=== PATIENT | male | born 1950 | race Caucasian/White ===

== ENCOUNTER 2017-05-14 10:17 | Day surgery (SDC) | payer MEDICARE, OTHER ==
[~2017-05-14 10:17] MED LIST: ACETAMINOPHEN 1,000 MG/100 ML BTL IV ONE; CLINDAMYCIN 600MG/50ML PREMIX 600 MG/50 ML BAG IVPB ONE; FAMOTIDINE 20MG TABLET PO ONE; MECLIZINE 25 MG TABLET PO ONE; METOCLOPRAMIDE 10 MG TABLET PO ONE
[2017-05-14 10:29] LABS: BASO % 0.4 % (0-6); EOS % 3.3 % (0-6); GRAN % 68.6 % (47-80); HEMATOCRIT 38.7 % (42.0-52.0); HEMOGLOBIN 11.9 gm/dl (14.0-18.0); LYMPH % 17.8 % (16-45); MEAN CELL VOLUME 81.5 fl (81-97); MEAN CORPUSCULAR HGB CONC 30.7 g/dl (32-36); MEAN PLATELET VOLUME 10.5 fl (7.4-10.4); MONO % 9.9 % (0-9); PLATELET COUNT 260 K/uL (130-400); RED BLOOD COUNT 4.75 M/uL (4.40-5.70); RED CELL DISTRIBUTION WIDTH 16.3 % (11.5-14.5); WHITE BLOOD COUNT W/O DIFF 7.7 K/uL (4.2-12.2)
[2017-05-14 10:45] LABS: ANION GAP 9.9 (7-16); BLOOD UREA NITROGEN 19 mg/dL (9-20); CARBON DIOXIDE 28.1 mmol/L (22-30); CREATININE 0.9 mg/dL (0.66-1.25); EST GLOMERULAR FILTRATION RATE > 60 ml/min; GLUCOSE,RANDOM 103 mg/dL (70-110)
[2017-05-14] MEDS ORDERED: PHENYLEPHRINE HCL 10 MG/ML VIAL IVP ONE (14:00)
[2017-05-14] MEDS ORDERED: SEVOFLURANE 250 ML INH ONE (14:00)
[2017-05-14] MEDS ORDERED: HYDROMORPHONE HCL 2 MG/ML VIAL IV ONE (14:00)
[2017-05-14] MEDS ORDERED: EPHEDRINE SULFATE 50 MG/ML ML IV ONE (14:00)
[2017-05-14] MEDS ORDERED: LIDOCAINE 2% MDV (20MG/ML) 20ML VIAL IV ONE (14:00)
[2017-05-14] MEDS ORDERED: BUPIVACAINE 0.25% W/EPI MPF 30ML VIAL IVP ONE (14:00)
[2017-05-14] MEDS ORDERED: KETOROLAC 30 MG/ML VIAL IVP ONE (14:00)
[2017-05-14] MEDS ORDERED: PROPOFOL 10 MG/ML VIAL IV ONE (14:00)
--- NOTE | 2017-05-16 14:38 | Operative Note ---
DATE OF SURGERY: 05/14/2017 Surgeon: Dwain Vaughn DO PREOPERATIVE DIAGNOSIS: Reducible right inguinal hernia. POSTOPERATIVE DIAGNOSIS: Reducible right inguinal hernia. OPERATION: Open right inguinal herniorrhaphy with mesh. Indication: The patient is a 58-year-old male who presented with pain and bulging in his right inguinal region. On exam, he had a reducible hernia noted. We did discuss repair; risks, benefits, and alternatives. Risks include bleeding, infection, acute or chronic pain, recurrence. He understood this fully. Thereafter, consent signed, questions answered. PROCEDURE: The patient was taken to the operating room and placed in a supine position. General anesthesia was administered per the department of anesthesia. The patient's right inguinal region was shaved of hair and prepped and draped in the usual fashion. At this time, an adequate timeout was performed. He had received preoperatively 2 g of Ancef. At this time, the oblique region was anesthetized with a total of 5 mL of 0.25% Sensorcaine with epinephrine. A 3.5 cm oblique incision was made. This was carried down through copious amounts of subcutaneous tissue to the aponeurosis of the external oblique. This was cleaned off. A paradise was made with the scalpel blade and enlarged through the superficial inguinal ring with Metzenbaum scissors. Care was taken not to injure the underlying ilioinguinal nerve or spermatic cord. At this time, superior and inferior flaps were developed and a Shari was placed on the spermatic cord. This was dissected free from the underlying transversalis fascia and retracted laterally with a Temple drain. The floor was inspected and noted to be free of any direct herniation. The cremasteric fibers were taken down. There was a fat-containing indirect hernia sac where high ligation was done. The patient had a very dilated deep inguinal ring. Therefore, an extra large plug was placed and sutured in with 2-0 Vicryl. At this time, a right-sided Prograf mesh was obtained. This was placed in the floor of the inguinal canal with excellent overlap of the pubic tubercle. Stitches went to the level of the pubic tubercle, second portion of the inguinal ligament, and the internal oblique aponeurosis. The mesh was pre-notched to accompany the spermatic cord. After this was done, the aponeurosis was closed over the cord with 2-0 Vicryl, Jeny layer was closed with 3-0 Vicryl, and skin was closed with 4-0 Vicryl in a running subcuticular fashion. Steri-Strips were applied. He was taken to the recovery room in satisfactory condition. FINDINGS AT THE TIME OF SURGERY: Right inguinal hernia, indirect. CC: Dr. Judi ANTONY
== END 2017-05-14 16:00 | disposition home or self-care (01) ==
LOC: SUR 10:17
PROVIDERS: ATTEND Surgery
DX: K40.90 Unilateral inguinal hernia, without obstruction or gangrene, not specified as recurrent (principal); D17.6 Benign lipomatous neoplasm of spermatic cord; E03.9 Hypothyroidism, unspecified; E78.00 Pure hypercholesterolemia, unspecified; I10 Essential (primary) hypertension
CPT/HCPCS: 49505; 00830; 85025; 80048; 88304; J1885; J1170; J2370

== ENCOUNTER 2017-10-21 09:37 | Emergency (ER) | payer MEDICARE ==
[2017-10-21] MEDS ORDERED: HYOSCYAMINE SULFATE ODT 0.125 MG TAB.SUBL SL ONE (09:53)
--- NOTE | 2017-10-21 09:57 | Emergency Department Record ---
History of Present Illness - General Chief complaint: Nausea, Vomiting, Diarrhea Stated complaint: DIARRHEA X 3 DAYS Time Seen by Provider: 10/21/17 09:52 Source: Patient Mode of Arrival: Ambulatory Limitations: No limitations - History of Present Illness Initial comments: 67 yo male presents to ED for evaluation of loose stools x 3 days. Patient reports undergoing back surgery with Dr. Nieto 10 days ago, has been constipated and taking colace but over the last 3 days has been unable to keep hydrated due to many loose, watery stools. Patient denies fevers, chill, or abdominal pain symptoms, but did report receiving Vancomycin x 2 days following his operation. Patient denies vomiting or urinary symptoms as well, and denies any recent ill contacts. MD complaint: Diarrhea Onset/Timin -: Days(s) Description of Vomiting: Watery Associated Abdominal Pain: No Severity: Moderate Severity scale (1-10): 2 Quality: Aching Consistency: Constant Improves with: None Worsens with: None Context: Recent surgery/procedure Associated Symptoms: Denies other symptoms - Related Data Previous Rx's Medication Instructions Recorded Hyoscyamine Sulfate [Levsin-Sl] 0.25 mg SL Q8H PRN #20 tab.subl 10/21/17 Metoprolol Tartrate 50 mg PO DAILY #15 tablet 10/21/17 Venlafaxine HCl [Effexor Xr] 75 mg PO DAILY #15 cap.er 10/21/17 Allergies Allergy/AdvReac Type Severity Reaction Status Date / Time cephalexin monohydrate Allergy Mild RASH Verified 08/23/16 13:57 [From Keflex] Penicillins Allergy Mild RASH Verified 08/23/16 13:57 tetracycline Allergy Mild RASH Verified 08/23/16 13:57 morphine Allergy NAUSEA AND Verified 10/21/17 09:49 VOMITING codeine AdvReac Mild NAUSEA AND Verified 08/23/16 13:56 VOMITING Travel Screening - Travel/Exposure Within Last 30 Days Have you traveled within the last 30 days?: No - Travel/Exposure Within Last Year Have you traveled outside the [place] in the last year?: No - Additonal Travel Details Have you been exposed to anyone with a communicable illness?: No - Travel Symptoms Symptom Screening: None Review of Systems Constitutional: Denies: Chills, Fever, Malaise, Night sweats Eyes: Denies: Eye discharge, Eye pain ENT: Denies: Congestion, Ear pain, Epistaxis Respiratory: Denies: Cough, Dyspnea Cardiovascular: Denies: Chest pain, Dyspnea on exertion Endocrine: Denies: Fatigue, Heat or cold intolerance Gastrointestinal: Reports: Diarrhea. Denies: Abdominal pain, Nausea, Vomiting Genitourinary: Denies: Incontinence, Retention Musculoskeletal: Denies: Arthralgia, Back pain, Gout, Joint swelling Skin: Denies: Bruising, Change in color Neurological: Denies: Abnormal gait, Confusion, Headache, Seizure Psychiatric: Denies: Anxiety Hematological/Lymphatic: Denies: Anemia, Blood Clots Past Medical History - SOCIAL HISTORY Smoking Status: Never smoker Alcohol Use: None Drug Use: None - RESPIRATORY Hx Respiratory Disorders: Yes Hx Sleep Apnea: Yes Hx of CPAP: Yes - CARDIOVASCULAR Hx Cardio Disorders: Yes Hx Hypertension: Yes - NEURO Hx Neuro Disorders: Yes Hx Neuropathy: Yes (hands/fingers) Hx Weakness: Yes (hands/fingers) - GI Hx GI Disorders: No - Hx Genitourinary Disorders: No - ENDOCRINE Hx Endocrine Disorders: Yes Hx Thyroid Disease: Yes - MUSCULOSKELETAL Hx Musculoskeletal Disorders: Yes Hx Arthritis: Yes - PSYCH Hx Psych Problems: Yes Hx Behavior Problems: Yes (ADHD) Hx Depression: Yes Comment:: ADHD - HEMATOLOGY/ONCOLOGY Hx Hematology/Oncology Disorders: No Hx Blood Transfusions: Yes (autologus) Family Medical History Any Significant Family History?: Yes Hx Cancer: Father *Cancer Comment: skin Hx Heart Disease: Mother, Brother/Sister *Heart Comment: CAD Hx HTN: Father Hx Seizures: Brother/Sister Physical Exam - General General Appearance: Alert, Oriented x3, Cooperative, Mild distress Limitations: No limitations - Head Head exam: Atraumatic, Normocephalic, Normal inspection Head exam detail: negative: Abrasion, Contusion, García's sign, General tenderness, Hematoma, Laceration - Eye Eye exam: Normal appearance. negative: Conjunctival injection, Periorbital swelling, Periorbital tenderness, Scleral icterus - ENT Ear exam: negative: Auricular hematoma, Auricular trauma Nasal Exam: negative: Active bleeding, Discharge, Dried blood, Foreign body Mouth exam: negative: Drooling, Laceration, Tongue elevation - Neck Neck exam: Normal inspection. negative: Meningismus, Tenderness - Respiratory Respiratory exam: Normal lung sounds bilaterally. negative: Rales, Respiratory distress, Rhonchi, Stridor - Cardiovascular Cardiovascular Exam: Normal rhythm, Normal heart sounds, Tachycardia - GI/Abdominal GI/Abdominal exam: Soft, Other (Non-tender abdominal examination, non-distended) . negative: Rebound, Rigid, Tenderness - Rectal Rectal exam: Deferred - exam: Deferred - Extremities Extremities exam: Normal inspection. negative: Pedal edema, Tenderness - Back Back exam: Denies: CVA tenderness (R), CVA tenderness (L) - Neurological Neurological exam: Alert, Normal gait, Oriented X3 - Psychiatric Psychiatric exam: Normal affect, Normal mood - Skin Skin exam: Normal color. negative: Abrasion Type of lesion: negative: abrasion Course Vital Signs 10/21/17 09:44 Temperature 98.2 F Pulse Rate 116 H Respiratory 18 Rate Blood Pressure 148/103 Pulse Ox 97 - Reevaluation(s) Reevaluation #1: 10/21/17 09:57 patient was seen and examined, denies abdominal pain symptoms/fever. Will initiate laboratory studies and C. Diff testing, administer IVFs, and reassess. Reevaluation #2: 10/21/17 10:58 Initial labs reviewed and are grossly unremarkable for an acute process. UA and stool studies have yet to be obtained. Reevaluation #3: 10/21/17 12:06 UA reviewed and is grossly unremarkable for an acute process. Patient has not had any loose stools while in ED, and reports that he is feeling much better. Patient appears stable for discharge at this time. Medical Decision Making - Lab Data Result diagrams: 10/21/17 10:00 10/21/17 10:00 Disposition Disposition: Discharge Clinical Impression: Loose stools, Dehydration Disposition: Home, Self-Care Condition: (2) Stable Instructions: Dehydration (ED), Acute Diarrhea (ED) Additional Instructions: Return to ED if your symptoms worsen or if you have any concerns. Levsin as directed. Metroprolol, Venlafaxine as directed. Follow-up with your family doctor in 3-5 days as directed. Prescriptions: Hyoscyamine Sulfate [Levsin-Sl] 0.25 mg SL Q8H PRN #20 tab.subl PRN Reason: Abdominal Pain Metoprolol Tartrate 50 mg PO DAILY #15 tablet Venlafaxine HCl [Effexor Xr] 75 mg PO DAILY #15 cap.er Forms: Patient Portal Access Time of Disposition: 12:14 Quality - Quality Measures Quality Measures: N/A - Blood Pressure Screening Does Patient Have Any of the Following: No Blood Pressure Classification: Hypertensive Reading Systolic Measurement: 148 Diastolic Measurement: 103 Screening for High Blood Pressure: < First Hypertensive BP, F/U Documented > [ [id number]] First Hypertensive Follow-up Interventions: Referral to alternative/primary care provider.
[2017-10-21] MEDS ORDERED: 0.9 % SODIUM CHLORIDE 1000ML 1,000 ML IV SCH ×2 (10:00→10:45)
[2017-10-21 10:06] LABS: BASO % 0.3 % (0-6); EOS % 4.9 % (0-6); GRAN % 66.7 % (47-80); HEMATOCRIT 40.9 % (42.0-52.0); LYMPH % 19.8 % (16-45); MEAN CELL VOLUME 81.3 fl (81-97); MEAN CORPUSCULAR HEMOGLOBIN 25.8 pg (27-33); MEAN CORPUSCULAR HGB CONC 31.8 g/dl (32-36); MEAN PLATELET VOLUME 10.7 fl (7.4-10.4); MONO % 8.3 % (0-9); PLATELET COUNT 331 K/uL (130-400); RED BLOOD COUNT 5.03 M/uL (4.40-5.70); RED CELL DISTRIBUTION WIDTH 14.6 % (11.5-14.5); WHITE BLOOD COUNT W/O DIFF 5.8 K/uL (4.2-12.2)
[2017-10-21 10:20] LABS: BLOOD UREA NITROGEN 21 mg/dL (8-23); EST GLOMERULAR FILTRATION RATE > 60 mL/min
[2017-10-21 10:21] LABS: TOTAL PROTEIN 8.2 g/dL (6.6-8.7)
[2017-10-21 10:23] LABS: GLUCOSE,RANDOM 121 mg/dL (74-109)
[2017-10-21 10:25] LABS: ALB/GLOB RATIO 1.1 (1.1-1.8); ALBUMIN 4.2 g/dL (4.0-5.0); ALKALINE PHOSPHATASE 95 U/L (40-129); ALT/SGPT 24 U/L (<41); AST/SGOT 22 U/L (10.0-50.0)
[2017-10-21 11:53] LABS: URINE APPEARANCE CLEAR; URINE BILIRUBIN NEGATIVE (NEGATIVE); URINE BLOOD NEGATIVE (NEGATIVE); URINE COLOR YELLOW; URINE GLUCOSE (UA) NEGATIVE (NEGATIVE); URINE KETONE NEGATIVE (NEGATIVE); URINE LEUKOCYTE ESTERASE NEGATIVE (NEGATIVE); URINE NITRITE NEGATIVE (NEGATIVE); URINE PROTEIN NEGATIVE (NEGATIVE); URINE UROBILINOGEN 0.2 E.U./dL (0.20 - 1.00)
[2017-10-22 16:12] LABS: MOLECULAR C DIFF TOXIN SCREEN NOT DETECTED (NOT DETECT)
[2017-10-22 16:13] LABS: ROTOVIRUS NOT DETECTED (NOT DETECT)
== END 2017-10-21 12:23 | disposition home or self-care (01) ==
LOC: ER 09:37
DX: E86.0 Dehydration (principal); R19.7 Diarrhea, unspecified; R11.2 Nausea with vomiting, unspecified; I10 Essential (primary) hypertension; Z98.890 Other specified postprocedural states
CPT/HCPCS: 99284 ×2; 96360; 96361; 85025; 80053; 87425; 81003; 87493; J1980; J7030

== ENCOUNTER 2018-07-08 09:00 | Day surgery (SDC) | payer MEDICARE ==
[2018-07-08] MEDS ORDERED: PROPOFOL 10 MG/ML VIAL IV ONE (09:01)
[2018-07-08] MEDS ORDERED: MIDAZOLAM HCL 2MG/2ML VIAL IV ONE (09:01)
[2018-07-08] MEDS ORDERED: LIDOCAINE 2% MDV (20MG/ML) 20ML VIAL IV ONE (09:01)
--- NOTE | 2018-07-10 09:50 | Operative Note ---
DATE OF SURGERY: 07/08/2018 OPERATION: COLONOSCOPY to the cecum with cold snare polypectomy x1. INDICATION: Colorectal cancer screening. The patient's last examination was in 2000. ANESTHESIA: Intravenous sedation was administered by the department of anesthesiology and included Diprivan titrated to effect. PROCEDURE: Following informed consent from this alert individual including a discussion of the risks and benefits of the procedure and an opportunity for the patient to ask questions, the patient was in the left lateral decubitus position. A digital rectal examination was performed. No abnormalities were noted. Following this, the Olympus [id number] video colonoscope was inserted into the rectum without resistance. The rectal mucosa had a normal appearance with normal folds and distensibility. The colonoscope was advanced up through the remainder of the bowel to the level of the cecum without much difficulty. Throughout the bowel the mucosa appeared normal, the folds were normal, and the bowel was fairly well distensible. There were scattered diameter noted in the sigmoid colon. There was a small to moderate amount of retained liquid and semi-solid stool noted with washing and suctioning employed vigorously throughout. The cecum was reached, and the ileocecal valve and cecal base were noted. However, there was some retrained stool and debris noted within the cecum. Washing was employed with fair visualization. From this point, the colonoscope was withdrawn. In the proximal ascending colon, there was a 6 mm polyp noted between folds. This was removed with cold snare polypectomy and application of biopsy forceps as well. The endoscope was then further withdrawn. No additional polyps were seen throughout. Again diverticulosis was noted in the sigmoid region. In the rectum, retroflexion revealed small internal hemorrhoids. The endoscope was straightened and removed. The patient tolerated the procedure well and was returned to the recovery area in stable condition. IMPRESSION: 1. A 6 mm proximal ascending colon polyp removed with a combination of cold snare polypectomy and biopsy. 2. Sigmoid diverticulosis. 3. Internal hemorrhoids. 4. Fair colon preparation. RECOMMENDATIONS: The patient was advised to have recheck colonoscopy in 3 years' time or sooner if problems arise. Followup will otherwise be with Dr. Lau. As always, thank you for allowing me to participate in the care of your patient. CC: DO ARPAN Murray
== END 2018-07-08 10:55 | disposition home or self-care (01) ==
LOC: HOP 09:00
PROVIDERS: ATTEND Internal Medicine Gastroenterology
DX: Z12.11 Encounter for screening for malignant neoplasm of colon (principal); D12.2 Benign neoplasm of ascending colon; K57.30 Diverticulosis of large intestine without perforation or abscess without bleeding; K64.8 Other hemorrhoids; I10 Essential (primary) hypertension; E78.00 Pure hypercholesterolemia, unspecified; F90.9 Attention-deficit hyperactivity disorder, unspecified type; F32.9 Major depressive disorder, single episode, unspecified; F41.9 Anxiety disorder, unspecified